=== PATIENT | female | born 1990 | race Caucasian/White ===

== ENCOUNTER 2016-09-20 13:29 | Outpatient (CLI) ==
[2015-02-19 08:50] VITALS: BMI 22.7
== END 2016-09-20 13:30 | disposition home or self-care (01) ==
LOC: AMBL 13:29
PROVIDERS: ATTEND Family Medicine
DX: M25.541 Pain in joints of right hand (principal); S69.91XA Unspecified injury of right wrist, hand and finger(s), initial encounter; W22.8XXA Striking against or struck by other objects, initial encounter

== ENCOUNTER 2017-06-22 14:49 | Outpatient (CLI) ==
[2015-02-19 08:50] VITALS: BMI 22.7
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
== END 2017-06-22 14:50 | disposition home or self-care (01) ==
LOC: RAD 14:49
PROVIDERS: ATTEND Physician Assistant
DX: M54.5 Low back pain (principal)

== ENCOUNTER 2017-06-24 18:57 | Emergency (ER) ==
[2017-06-24 19:08] VITALS: BP 109/74; TEMP 97.5; BMI 23.1
[2017-06-24] MEDS ORDERED: SODIUM CHLORIDE 1,000 ML IV STA ×2 (19:10)
[2017-06-24] MEDS ORDERED: ZOFRAN 4 MG/2 ML IVP STA (19:10)
--- NOTE | 2017-06-24 20:41 | CT ---
EXAM: CT abdomen pelvis without contrast HISTORY: Vomiting, right lower quadrant abdominal pain COMPARISON: 01/12/2014 TECHNIQUE: CT abdomen pelvis performed without intravenous contrast. Coronal and sagittal reformatt ed images obtained. FINDINGS: Lung bases clear. No free air. No acute abnormalities of the bones. Heart normal in siz e. Evaluation organ parenchyma limited without contrast. Liver unremarkable. Gallbladder unremarka ble. Pancreas unremarkable. Spleen unremarkable. Adrenals unremarkable. 2 mm nonobstructing calcu del right kidney. No hydronephrosis. No definite calculi visualized in normal course of the ureters , noting the distal ureters are not visualized. Phleboliths in the pelvis. Bladder decompressed an d poorly evaluated, grossly unremarkable. Phleboliths noted in the pelvis. No. Aorta normal calib er. No lymphadenopathy or ascites. Stomach appears normal. No dilated loops small bowel. Appendix appears normal. Fluid in the colon. No inflammatory stranding identified in the abdomen or pelvis. IMPRESSION: 1. No acute inflammatory process identified in the abdomen or pelvis. 2. Right nephrolithiasis. No hydronephrosis. 3. Nonspecific fluid in the colon can be correlated for diarrhea.
--- NOTE | 2017-06-24 21:50 | ED.PDOC ---
General ED Provider: Dr. ZULEIKA MACHADO-ER Chief Complaint: Nausea/Vomiting Stated Complaint: shannon had vomiting and diarrhea Time Seen by Physician: 19:00 Mode of Arrival: Walk-In Information Source: Patient Exam Limitations: No limitations Primary Care Provider: LAURE SANCHEZ Nursing and Triage Documentation Reviewed and Agree: Yes Reviewed sepsis parameters & appropriate labs ordered?: Yes System Inflammatory Response Syndrome: Not Applicable Sepsis Protocol: For patient's 13 years and over: Temp is 96.8 and below OR 101 and greater Pulse >90 BPM Resp >20/minute Acutely Altered Mental Status Are patient's symptoms suggestive of a new infection, such as: -Pneumonia -Skin, Soft Tissue -Endocarditis -UTI -Bone, Joint Infection -Implantable Device -Acute Abdominal Infection -Wound Infection -Meningitis -Blood Stream Catheter Infection -Unknown GI Complaint Exam - Vomiting/Diarrhea Complaint/Exam Onset/Duration: 24 hrs Symptoms Are: Still present Initial Severity: Mild Current Severity: Mild Character of Vomiting: Reports: Non-bilious Character of Diarrhea: Reports: Watery Aggravating: Reports: None Alleviating: Reports: None Associated Signs and Symptoms: Denies: Dizziness, Light-headedness, Melena, Hematemesis, Fever, Abdominal pain, Cramping Surgical Obstruction Risk Factors: Reports: None Abdominal Findings: Present: None Kussmaul Respirations Present: No Differential Diagnoses: Dehydration, UTI Review of Systems - Review Of Systems Constitutional: Reports: No symptoms Eyes: Reports: No symptoms Ears, Nose, Mouth, Throat: Reports: No symptoms Respiratory: Reports: No symptoms Cardiac: Reports: No symptoms GI: Reports: Diarrhea, Nausea, Vomiting : Reports: No symptoms Musculoskeletal: Reports: No symptoms Skin: Reports: No symptoms Neurological: Reports: No symptoms Endocrine: Reports: No symptoms Hematologic/Lymphatic: Reports: No symptoms All Other Systems: Reviewed and Negative Past Medical History - Past Medical History Previously Healthy: Yes Endocrine: Reports: None Cardiovascular: Reports: None Respiratory: Reports: None Hematological: Reports: None Gastrointestinal: Reports: None Genitourinary: Reports: None Neuro/Psych: Reports: None Musculoskeletal: Reports: None Cancer: Reports: None Last Menstrual Period: 06/08/17 - Surgical History General Surgical History: Reports: Unknown - Family History Family History: Reports: Unknown - Social History Smoking Status: Current every day smoker Hx Substance Use: No Alcohol Screening: None - Immunizations Tetanus Shot up to Date: Yes Physical Exam - Physical Exam Appearance: Well-appearing, No pain distress, Well-nourished Eyes: KORY, EOMI, Conjunctiva clear ENT: Ears normal, Nose normal, Oropharynx normal Neck: Supple Respiratory: Airway patent Cardiovascular: RRR, Pulses normal, No rub, No murmur GI/: Soft, Nontender, No masses, Bowel sounds normal, No Organomegaly Musculoskeletal: Normal strength, ROM intact, No edema, No calf tenderness Skin: Warm, Dry, Normal color Neurological: Sensation intact Psychiatric: Affect appropriate, Mood appropriate Interpretation - Radiology Interpretation Radiology Interpretation By: Radiologist Radiology Results: Negative Exam Interpreted: CT Scan Critical Care Note - Critical Care Note Total Time (mins): 0 Course - Course Hematology/Chemistry: 06/24/17 19:17 06/24/17 19:17 Orders, Labs, Meds: Lab Review 06/24/17 06/24/17 06/24/17 19:10 19:17 19:17 WBC 5.27 RBC 5.07 Hgb 14.0 Hct 42.2 MCV 83.2 MCH 27.6 MCHC 33.2 RDW Coeff of Gilberto 14.2 Plt Count 158 Immature Gran % (Auto) 0.4 Neut % (Auto) 59.9 Lymph % (Auto) 29.8 [place] % (Auto) 9.3 Eos % (Auto) 0.4 Baso % (Auto) 0.2 Immature Gran # (Auto) 0.0 Neut # (Auto) 3.2 Lymph # (Auto) 1.6 [place] # (Auto) 0.5 Eos # (Auto) 0.0 Baso # (Auto) 0.0 Sodium 140 Potassium 3.9 Chloride 106 Carbon Dioxide 23 Anion Gap 14.9 BUN 13 Creatinine 0.92 Estimated GFR (MDRD) 74.00 BUN/Creatinine Ratio 14.13 Glucose 93 Calcium 8.9 Total Bilirubin 0.4 AST 18 ALT 16 Alkaline Phosphatase 68 Total Protein 6.9 Albumin 3.5 Globulin 3.4 Albumin/Globulin Ratio 1.03 Amylase 33 Lipase 26 Serum , Qual Urine Color Urine Clarity Urine pH Ur Specific [place] Urine Protein Urine Glucose (UA) Urine Ketones Urine Blood Urine Nitrite Urine Bilirubin Urine Urobilinogen Ur Leukocyte Esterase Urine Microscopic RBC Urine Microscopic WBC Ur Squamous Epith Cells Urine Bacteria Hyaline Casts Urine Mucus Influ A Molecular Assay Negative by naat Influ B Molecular Assay Negative by naat 06/24/17 06/24/17 19:17 21:00 WBC RBC Hgb Hct MCV MCH MCHC RDW Coeff of Gilberto Plt Count Immature Gran % (Auto) Neut % (Auto) Lymph % (Auto) [place] % (Auto) Eos % (Auto) Baso % (Auto) Immature Gran # (Auto) Neut # (Auto) Lymph # (Auto) [place] # (Auto) Eos # (Auto) Baso # (Auto) Sodium Potassium Chloride Carbon Dioxide Anion Gap BUN Creatinine Estimated GFR (MDRD) BUN/Creatinine Ratio Glucose Calcium Total Bilirubin AST ALT Alkaline Phosphatase Total Protein Albumin Globulin Albumin/Globulin Ratio Amylase Lipase Serum , Qual Negative Urine Color Yellow Urine Clarity Clear Urine pH 5.5 Ur Specific [place] >=1.030 Urine Protein 1+ Urine Glucose (UA) Negative Urine Ketones 1+ Urine Blood 1+ Urine Nitrite Positive Urine Bilirubin 1+ Urine Urobilinogen 0.2 Ur Leukocyte Esterase Negative Urine Microscopic RBC 5-10 Urine Microscopic WBC 2-5 Ur Squamous Epith Cells 5-10 Urine Bacteria 2+ Hyaline Casts 0-2 Urine Mucus 1+ Influ A Molecular Assay Influ B Molecular Assay Orders Category Date Time Status ED IV/MEDIPORT/POWERPORT .ONCE EMERGENCY 06/24/17 19:10 Active AMYLASE Stat LAB 06/24/17 19:17 Completed CBC W/ AUTO DIFF Stat LAB 06/24/17 19:17 Completed COMPREHENSIVE METABOLIC PANEL Stat LAB 06/24/17 19:17 Completed FLU A & B MOLECULAR [FLU A/B MOLECULAR] Stat LAB 06/24/17 19:10 Completed LIPASE Stat LAB 06/24/17 19:17 Completed MOLECULAR GROUP A STREP Stat LAB 06/24/17 19:10 Completed SERUM Stat LAB 06/24/17 19:17 Completed URINALYSIS C & S IF INDICATED Stat LAB 06/24/17 21:00 Completed URINE CULTURE Stat LAB 06/24/17 21:00 Received 0.9 % Sodium Chloride [Saline Flush] MEDS 06/24/17 19:10 Ordered 1 syr IVF PRN PRN Ondansetron HCl/Pf [Zofran 4 mg/2 ml] MEDS 06/24/17 19:10 Discontinued 4 mg IVP ONCE STA Sodium Chloride 0.9% [Sodium Chloride] 1,000 ml MEDS 06/24/17 19:10 Discontinued IV BOLUS Sodium Chloride 0.9% [Sodium Chloride] 1,000 ml MEDS 06/24/17 19:[address] ABDOMEN/PELVIS WO CONTRAST Stat RADS 06/24/17 19:11 Completed Medications Generic Name Dose Route Start Last Admin Trade Name Freq PRN Reason Stop Dose Admin Sodium Chloride 1 syr 06/24/17 19:10 06/24/17 19:21 Saline Flush IVF 1 syr PRN PRN Administration To flush IV Discontinued Medications Generic Name Dose Route Start Last Admin Trade Name Freq PRN Reason Stop Dose Admin Sodium Chloride 1,000 mls @ 1,000 mls/hr 06/24/17 19:10 06/24/17 19:21 Sodium Chloride IV 06/24/17 20:09 1,000 mls/hr BOLUS STA Administration Sodium Chloride 1,000 mls @ 1,000 mls/hr 06/24/17 19:10 06/24/17 20:57 Sodium Chloride IV 06/24/17 20:09 1,000 mls/hr BOLUS STA Administration Ondansetron HCl 4 mg 06/24/17 19:10 06/24/17 19:23 Zofran 4 Mg/2 Ml IVP 06/24/17 19:11 4 mg ONCE STA Administration Vital Signs: Temp Pulse Resp BP Pulse Ox 06/24/17 18:59 97.5 F L 86 20 109/74 98 Departure - Departure Time of Disposition: 21:49 Disposition: HOME SELF-CARE Discharge Problem: Enteritis UTI (urinary tract infection) Qualifiers: Urinary tract infection type: site unspecified Hematuria presence: without hematuria Qualified Code(s): N39.0 - Urinary tract infection, site not specified Instructions: Urinary Tract Infection in Women (DC) Condition: Good Pt referred to PMD for follow-up: Yes IPMP verified?: No Additional Instructions: cipro 500mg bid x 7dyas==zofran 4mg q 4hrs prn nausea #4--clear liquids and advance-- Allergies/Adverse Reactions: Allergies No Known Allergies Allergy (Verified 02/19/15 08:48) Home Medications: Ambulatory Orders 1 [No Reported Medications] 06/24/17 Disposition Discussed With: Patient, Family
== END 2017-06-24 21:58 | disposition home or self-care (01) ==
LOC: ED 18:57
DX: K52.9 Noninfective gastroenteritis and colitis, unspecified (principal); N39.0 Urinary tract infection, site not specified; F17.210 Nicotine dependence, cigarettes, uncomplicated
CPT/HCPCS: 36415; 80053; 81001; 82150; 83690; 84703; 85025; 87086; 87186; 87502; 87651; 96361; 96374; 99283

== ENCOUNTER 2017-08-26 13:20 | Emergency (ER) ==
[2017-08-26 13:31] VITALS: BP 126/81; TEMP 99.9; BMI 22.6
[2017-08-26] MEDS ORDERED: TORADOL IM STA (13:42)
[2017-08-26] MEDS ORDERED: LIDOCAINE HCL 1% SDV IM STA (14:54)
[2017-08-26] MEDS ORDERED: ROCEPHIN IM STA (14:54)
--- NOTE | 2017-08-26 15:06 | CT ---
EXAM: CT of the abdomen pelvis without contrast History: Abdominal pain. Right flank pain Comparison: CT abdomen pelvis 06/24/2017 Technique: Multiplanar CT images through the abdomen pelvis were obtained without the administration of IV contrast Findings: The lung bases are clear. No acute osseous abnormalities. No discrete gallstones identified by CT. No focal liver or splenic lesions. No peripancreatic infla mmation. 2 mm calculus within the right kidney. No hydronephrosis. No perinephric stranding. No b owel obstruction. No free air and no ascites. Adrenal glands are unremarkable. Evaluation for lymp h nodes is difficult due to the lack of contrast administration but no pathologically enlarged lymph nodes are seen. No bladder wall thickening. No perirectal inflammation. No inflammatory stranding. Multiple small pelvic calcifications are probably phleboliths since there is no hydronephrosis. The appendix is not seen. There are no secondary signs of appendicitis. Adnexal structures not well jean carlos luated without IV contrast. Impression: 1. No acute intra-abdominal or pelvic process. 2. Nonobstructing right nephrolithiasis.
--- NOTE | 2017-08-26 15:54 | ED.PDOC ---
General ED Provider: Dr. RIYA AMOS Chief Complaint: Abdominal Pain Stated Complaint: lower abdominal Time Seen by Physician: 13:30 Mode of Arrival: Walk-In Information Source: Patient Exam Limitations: No limitations Primary Care Provider: LAURE SANCHEZ Nursing and Triage Documentation Reviewed and Agree: Yes Reviewed sepsis parameters & appropriate labs ordered?: Yes System Inflammatory Response Syndrome: Not Applicable Sepsis Protocol: For patient's 13 years and over: Temp is 96.8 and below OR 101 and greater Pulse >90 BPM Resp >20/minute Acutely Altered Mental Status Are patient's symptoms suggestive of a new infection, such as: -Pneumonia -Skin, Soft Tissue -Endocarditis -UTI -Bone, Joint Infection -Implantable Device -Acute Abdominal Infection -Wound Infection -Meningitis -Blood Stream Catheter Infection -Unknown System Inflammatory Response Syndrome: Not Applicable GI Complaint Exam - Abdominal Pain Complaint/Exam Onset: Gradual Duration: 2 days right left lower quadrent Symptoms Are: Still present Timing: Intermittent Initial Severity: Moderate Current Severity: Moderate Location of Pain: RLQ, LLQ Radiates To: Reports: Chest Character: Reports: Dull Aggravating: Reports: None Alleviating: Reports: None Associated Signs and Symptoms: Denies: Diaphoresis, Fever, Cough, Chest pain, Dizziness, Back pain, Constipation, Blood in stool, Dysuria, Urinary frequency, Decreased urine output, Decreased appetite, Vaginal bleeding, Vaginal discharge , Nausea, Vomiting, Diarrhea, Sore throat, Decreased activity Related History: Reports: Similar episode (renal stone seen at [facility] ) AAA Risk Factors: Reports: None Cardiac Risk Factors: Reports: None Ectopic Risk Factors: Reports: None Ovarian Torsion Risk Factors: Reports: None Surgical Obstruction Risk Factors: Reports: None Related Surgical History: Reports: None Patient Rh Status: Unknown Abdominal Findings: Present: None Differential Diagnoses: Appendicitis, Bowel Obstruction, Constipation, Hepatitis , Pancreatitis, UTI Review of Systems - Review Of Systems Constitutional: Reports: No symptoms Eyes: Reports: No symptoms Ears, Nose, Mouth, Throat: Reports: No symptoms Respiratory: Reports: No symptoms Cardiac: Reports: No symptoms GI: Reports: Abdominal pain : Reports: Dysuria Musculoskeletal: Reports: No symptoms Skin: Reports: No symptoms Neurological: Reports: No symptoms Endocrine: Reports: No symptoms Hematologic/Lymphatic: Reports: No symptoms All Other Systems: Reviewed and Negative Past Medical History - Past Medical History Previously Healthy: Yes Endocrine: Reports: None Cardiovascular: Reports: None Respiratory: Reports: None Hematological: Reports: None Gastrointestinal: Reports: None Genitourinary: Reports: None Neuro/Psych: Reports: None Musculoskeletal: Reports: None Cancer: Reports: None Last Menstrual Period: now - Surgical History General Surgical History: Reports: Unknown - Family History Family History: Reports: Unknown - Social History Smoking Status: Current every day smoker, Light tobacco smoker Hx Substance Use: No Alcohol Screening: None Physical Exam - Physical Exam Appearance: Well-appearing, No pain distress, Well-nourished Eyes: KORY, EOMI, Conjunctiva clear ENT: Ears normal, Nose normal, Oropharynx normal Respiratory: Airway patent, Breath sounds clear, Breath sounds equal, Respirations nonlabored Cardiovascular: RRR, Pulses normal, No rub, No murmur GI/: Soft, Nontender, No masses, Bowel sounds normal, No Organomegaly Musculoskeletal: Normal strength, ROM intact, No edema, No calf tenderness Skin: Warm, Dry, Normal color Neurological: Sensation intact, Motor intact, Reflexes intact, Cranial nerves intact, Alert, Oriented Psychiatric: Affect appropriate, Mood appropriate Interpretation - Radiology Interpretation Radiology Interpretation By: Radiologist Radiology Results: Positive (renal stone) Critical Care Note - Critical Care Note Total Time (mins): 0 Course - Course Hematology/Chemistry: 08/26/17 13:50 08/26/17 13:50 Orders, Labs, Meds: Lab Review 08/26/17 08/26/17 08/26/17 13:50 13:50 14:05 WBC 14.90 H RBC 4.19 L Hgb 11.3 L Hct 34.3 L MCV 81.9 MCH 27.0 MCHC 32.9 RDW Coeff of Gilberto 14.5 Plt Count 270 Immature Gran % (Auto) 0.8 Neut % (Auto) 78.6 Lymph % (Auto) 14.7 [place] % (Auto) 5.3 Eos % (Auto) 0.3 Baso % (Auto) 0.3 Immature Gran # (Auto) 0.1 Neut # (Auto) 11.7 H Lymph # (Auto) 2.2 [place] # (Auto) 0.8 Eos # (Auto) 0.1 Baso # (Auto) 0.0 Sodium 138 Potassium 3.7 Chloride 102 Carbon Dioxide 24 Anion Gap 15.7 BUN 11 Creatinine 0.88 Estimated GFR (MDRD) 78.00 BUN/Creatinine Ratio 12.50 Glucose 74 Calcium 8.9 Total Bilirubin 0.4 AST 25 ALT 35 Alkaline Phosphatase 78 Total Protein 7.3 Albumin 3.3 L Globulin 4.0 Albumin/Globulin Ratio 0.83 Amylase 33 Lipase 20 Urine Color Yellow Urine Clarity Slightly Urine pH 6.0 Ur Specific [place] 1.020 Urine Protein 1+ Urine Glucose (UA) Negative Urine Ketones Negative Urine Blood 2+ Urine Nitrite Positive Urine Bilirubin Negative Urine Urobilinogen 0.2 Ur Leukocyte Esterase 2+ Urine Microscopic RBC 20-30 Urine Microscopic WBC 20-30 Ur Squamous Epith Cells Not present Urine Bacteria 1+ Urine Test 08/26/17 14:05 WBC RBC Hgb Hct MCV MCH MCHC RDW Coeff of Gilberto Plt Count Immature Gran % (Auto) Neut % (Auto) Lymph % (Auto) [place] % (Auto) Eos % (Auto) Baso % (Auto) Immature Gran # (Auto) Neut # (Auto) Lymph # (Auto) [place] # (Auto) Eos # (Auto) Baso # (Auto) Sodium Potassium Chloride Carbon Dioxide Anion Gap BUN Creatinine Estimated GFR (MDRD) BUN/Creatinine Ratio Glucose Calcium Total Bilirubin AST ALT Alkaline Phosphatase Total Protein Albumin Globulin Albumin/Globulin Ratio Amylase Lipase Urine Color Urine Clarity Urine pH Ur Specific [place] Urine Protein Urine Glucose (UA) Urine Ketones Urine Blood Urine Nitrite Urine Bilirubin Urine Urobilinogen Ur Leukocyte Esterase Urine Microscopic RBC Urine Microscopic WBC Ur Squamous Epith Cells Urine Bacteria Urine Test Negative Orders Category Date Time Status AMYLASE Stat LAB 08/26/17 13:50 Completed CBC W/ AUTO DIFF Stat LAB 08/26/17 13:50 Completed COMPREHENSIVE METABOLIC PANEL Stat LAB 08/26/17 13:50 Completed LIPASE Stat LAB 08/26/17 13:50 Completed URINALYSIS C & S IF INDICATED Stat LAB 08/26/17 14:05 Completed URINE CULTURE Stat LAB 08/26/17 14:05 Received URINE Stat LAB 08/26/17 14:05 Completed Ceftriaxone Sodium [Rocephin] MEDS 08/26/17 14:54 Stat 1 gm IM ONCE STA Ketorolac Tromethamine [Toradol] MEDS 08/26/17 13:42 Discontinued 30 mg IM ONCE STA Lidocaine HCl/Pf [Lidocaine HCl 1% Sdv] MEDS 08/26/17 14:54 Stat 2.1 ml IM ONCE STA CT ABDOMEN/PELVIS WO CONTRAST Stat RADS 08/26/17 13:39 Taken Medications Discontinued Medications Generic Name Dose Route Start Last Admin Trade Name Jovanni PRN Reason Stop Dose Admin Ceftriaxone Sodium 1 gm 08/26/17 14:54 08/26/17 15:20 Rocephin IM 08/26/17 14:55 1 gm ONCE STA Administration Ketorolac Tromethamine 30 mg 08/26/17 13:42 08/26/17 14:08 Toradol IM 08/26/17 13:43 30 mg ONCE STA Administration Lidocaine HCl 2.1 ml 08/26/17 14:54 08/26/17 15:16 Lidocaine Hcl 1% Sdv IM 08/26/17 14:55 2.1 ml ONCE STA Administration Vital Signs: Temp Pulse Resp BP Pulse Ox 08/26/17 13:21 99.9 F H 109 H 20 126/81 96 Departure - Departure Time of Disposition: 15:55 Disposition: HOME SELF-CARE Discharge Problem: Abdominal pain, UTI (urinary tract infection) Instructions: Urinary Tract Infection in Women (ED), Abdominal Pain (ED) Condition: Good Pt referred to PMD for follow-up: Yes IPMP verified?: No Additional Instructions: Please call your Family Physician as soon as possible to schedule a follow-up appointment. Allergies/Adverse Reactions: Allergies No Known Allergies Allergy (Verified 08/26/17 13:30) Home Medications: Ambulatory Orders Cholecalciferol (Vitamin D3) [Vitamin D] 50,000 unit PO WEEKLY 08/26/17 Trazodone HCl 100 mg PO BEDTIME 08/26/17 Venlafaxine HCl [Effexor Xr] 37.5 mg PO DAILY 08/26/17
== END 2017-08-26 16:07 | disposition home or self-care (01) ==
LOC: ED 13:20
DX: N39.0 Urinary tract infection, site not specified (principal); R10.32 Left lower quadrant pain; R10.31 Right lower quadrant pain; F17.210 Nicotine dependence, cigarettes, uncomplicated; N20.0 Calculus of kidney
CPT/HCPCS: 36415; 80053; 81001; 81025; 82150; 83690; 85025; 87086; 87186; 96372; 99283

== ENCOUNTER 2017-09-12 01:59 | Inpatient (IN) ==
[2017-09-12] MEDS ORDERED: PROTONIX IV IVP STA (02:31)
[2017-09-12] MEDS ORDERED: SODIUM CHLORIDE 1,000 ML IV STA (02:31)
[2017-09-12] MEDS ORDERED: DILAUDID IVP STA (02:31)
[2017-09-12] MEDS ORDERED: ZOFRAN 4 MG/2 ML IVP STA (02:31)
--- NOTE | 2017-09-12 02:36 | ED.PDOC ---
General ED Provider: Dr. DG FELIZ Chief Complaint: Abdominal Pain Stated Complaint: Patient complains of two week history of rigth upper quadrant pain with radiation to the back. Pain got worse tonight. she was seen in this ER on the August for abdominal pain. Had a CT scan that showed. Right 2mm kidney stone without obstruction. She was diagnosed with urinary tract infection and sent home on antibotics which she states she completed. Time Seen by Physician: 02:33 Mode of Arrival: Walk-In Information Source: Patient Exam Limitations: No limitations Primary Care Provider: LAURE SANCHEZ Nursing and Triage Documentation Reviewed and Agree: Yes Reviewed sepsis parameters & appropriate labs ordered?: Yes System Inflammatory Response Syndrome: Temp 101F or Greater, Pulse >90 BPM, Resp >20/Minute Sepsis Protocol: For patient's 13 years and over: Temp is 96.8 and below OR 101 and greater Pulse >90 BPM Resp >20/minute Acutely Altered Mental Status Are patient's symptoms suggestive of a new infection, such as: -Pneumonia -Skin, Soft Tissue -Endocarditis -UTI -Bone, Joint Infection -Implantable Device -Acute Abdominal Infection -Wound Infection -Meningitis -Blood Stream Catheter Infection -Unknown System Inflammatory Response Syndrome: Not Applicable GI Complaint Exam - Abdominal Pain Complaint/Exam Onset: Gradual Duration: 1-2 weeks Symptoms Are: Still present Timing: Constant Initial Severity: Moderate Current Severity: Severe Location of Pain: RUQ Radiates To: Reports: Back Character: Reports: Aching, Throbbing Aggravating: Reports: None Associated Signs and Symptoms: Reports: Fever, Back pain, Nausea. Denies: Cough , Chest pain, Dizziness, Constipation, Blood in stool, Dysuria, Urinary frequency, Vomiting, Diarrhea, Sore throat Related History: Reports: Similar episode (3 weeks ago but symtoms were mild. ) [employer] History: Denies: Ectopic, Ovarian cyst, PID : 0 Para: 0 Hx Total # of Abortions (Spontaneous & Elective): 0 AAA Risk Factors: Reports: None Cardiac Risk Factors: Reports: None Ectopic Risk Factors: Reports: None Ovarian Torsion Risk Factors: Reports: Reproductive age Surgical Obstruction Risk Factors: Reports: None Related Surgical History: Reports: Appendectomy Patient Rh Status: Unknown Abdominal Findings: Absent: Pulsatile mass, Abdominal distention, Unequal femoral pulses, Rebound tenderness, Peritoneal signs, McBurney's Point tender Differential Diagnoses: Appendicitis, Gastroenteritis, Hepatitis, Pancreatitis, Pneumonia, Renal Colic, Ureteral Stone, GB, PUD, UTI, , Ovarian Cyst Review of Systems - Review Of Systems Constitutional: Reports: Diaphoresis, Loss of appetite Ears, Nose, Mouth, Throat: Reports: No symptoms Respiratory: Reports: No symptoms Cardiac: Denies: Chest pain, Edema GI: Reports: Abdominal pain, Nausea, Poor appetite, Vomiting : Reports: No symptoms Musculoskeletal: Reports: Back pain Skin: Reports: No symptoms Neurological: Reports: Anxiety Endocrine: Reports: No symptoms Hematologic/Lymphatic: Reports: No symptoms All Other Systems: Reviewed and Negative Past Medical History - Past Medical History Previously Healthy: Yes Endocrine: Reports: None Cardiovascular: Reports: None Respiratory: Reports: None Hematological: Reports: None Gastrointestinal: Reports: None Genitourinary: Reports: UTI (Treated 3 weeks ago with Bactrium, Treated 3 months ago with Cipro. Urine cultures showed E coli resistant to bactrium on aug 26 2017 ), Kidney stones Neuro/Psych: Reports: Anxiety, Depression Musculoskeletal: Reports: None Cancer: Reports: None Last Menstrual Period: A FEW WEEKS AGO - Surgical History General Surgical History: Reports: Other (PE tubes as a child. ) - Family History Family History: Reports: Unknown - Social History Smoking Status: Current every day smoker, Heavy tobacco smoker Hx Substance Use: No Alcohol Screening: Occasionally - Immunizations Tetanus Shot up to Date: Yes Physical Exam - Physical Exam Appearance: Ill-appearing Ill-appearing: Moderate Pain Distress: Severe Eyes: KORY, EOMI Neck: Supple Respiratory: Airway patent, Breath sounds clear, Breath sounds equal Cardiovascular: Pulses normal, Tachycardia GI/: Soft, Tender (RUQ) Musculoskeletal: Normal strength, ROM intact, No edema, No calf tenderness Skin: Warm, Dry Neurological: Sensation intact, Motor intact, Alert, Oriented Psychiatric: Anxious Interpretation - Radiology Interpretation Radiology Interpretation By: Radiologist Radiology Results: Positive (stranding /edema is present inferor tot he Right kidney which extendeds to the right Pericolic gutter. Pyelonephritis cannot be excluded due to lack of contrust; Nonobstructing kidney stone.) Critical Care Note - Critical Care Note Total Time (mins): 30 Course - Course Hematology/Chemistry: 09/13/17 04:50 09/13/17 04:50 Orders, Labs, Meds: Lab Review 09/12/17 09/12/17 09/12/17 02:45 02:45 02:45 WBC 9.63 RBC 3.67 L Hgb 9.8 L Hct 29.8 L MCV 81.2 MCH 26.7 L MCHC 32.9 RDW Coeff of Gilberto 15.6 H Plt Count 174 Immature Gran % (Auto) 0.4 Neut % (Auto) 81.4 Lymph % (Auto) 11.6 [place] % (Auto) 6.3 Eos % (Auto) 0.1 Baso % (Auto) 0.2 Immature Gran # (Auto) 0.0 Neut # (Auto) 7.8 H Lymph # (Auto) 1.1 [place] # (Auto) 0.6 Eos # (Auto) 0.0 Baso # (Auto) 0.0 Sodium 134 L Potassium 3.1 L Chloride 105 Carbon Dioxide 17 L Anion Gap 15.1 BUN 9 Creatinine 0.84 Estimated GFR (MDRD) 83.00 BUN/Creatinine Ratio 10.71 Glucose 168 H Lactic Acid 29.0 H Calcium 8.0 L Total Bilirubin 0.3 AST 25 ALT 26 Alkaline Phosphatase 81 Total Protein 5.5 L Albumin 2.4 L Globulin 3.1 Albumin/Globulin Ratio 0.77 Amylase 18 L Lipase 16 Procalcitonin Serum , Qual Urine Color Urine Clarity Urine pH Ur Specific [place] Urine Protein Urine Glucose (UA) Urine Ketones Urine Blood Urine Nitrite Urine Bilirubin Urine Urobilinogen Ur Leukocyte Esterase Urine Microscopic RBC Urine Microscopic WBC Ur Squamous Epith Cells Urine Bacteria 09/12/17 09/12/17 09/12/17 02:45 02:45 03:10 WBC RBC Hgb Hct MCV MCH MCHC RDW Coeff of Gilberto Plt Count Immature Gran % (Auto) Neut % (Auto) Lymph % (Auto) [place] % (Auto) Eos % (Auto) Baso % (Auto) Immature Gran # (Auto) Neut # (Auto) Lymph # (Auto) [place] # (Auto) Eos # (Auto) Baso # (Auto) Sodium Potassium Chloride Carbon Dioxide Anion Gap BUN Creatinine Estimated GFR (MDRD) BUN/Creatinine Ratio Glucose Lactic Acid Calcium Total Bilirubin AST ALT Alkaline Phosphatase Total Protein Albumin Globulin Albumin/Globulin Ratio Amylase Lipase Procalcitonin 0.25 Serum , Qual Negative Urine Color Yellow Urine Clarity Slightly Urine pH 6.5 Ur Specific [place] 1.020 Urine Protein 2+ Urine Glucose (UA) Negative Urine Ketones Negative Urine Blood 2+ Urine Nitrite Positive Urine Bilirubin Negative Urine Urobilinogen 1.0 Ur Leukocyte Esterase 1+ Urine Microscopic RBC 10-20 Urine Microscopic WBC 10-20 Ur Squamous Epith Cells 5-10 Urine Bacteria 4+ Orders Category Date Time Status ADMIT PATIENT INPATIENT .TO [facility] (NON-MONITORED ADMISSION 09/12/17 03: 57 Active BED) ACTIVITY .Up ad Hayde CARE 09/12/17 03:38 Active INTAKE & OUTPUT Q8HR CARE 09/12/17 03:38 Active VITAL SIGNS Q4HR CARE 09/12/17 03:38 Active REGULAR DIET DIETARY 09/12/17 Breakfast Ordered ED IV/MEDIPORT/POWERPORT .ONCE EMERGENCY 09/12/17 02:31 Active AMYLASE Stat LAB 09/12/17 02:45 Completed BASIC METABOLIC PANEL DAILY@0600 LAB 09/13/17 04:50 Completed BLOOD CULTURE (ED ONLY) Stat LAB 09/12/17 02:45 Results CBC W/ AUTO DIFF DAILY@0600 LAB 09/13/17 04:50 Completed CBC W/ AUTO DIFF Stat LAB 09/12/17 02:45 Completed COMPREHENSIVE METABOLIC PANEL Stat LAB 09/12/17 02:45 Completed HCG QUALITATIVE [SERUM ] Stat LAB 09/12/17 02:45 Completed LACTIC ACID Stat LAB 09/12/17 02:45 Completed LIPASE Stat LAB 09/12/17 02:45 Completed POS BC ID AND SERGIO Stat LAB 09/12/17 02:45 Results PROCALCITONIN Stat LAB 09/12/17 02:45 Completed URINALYSIS C & S IF INDICATED Stat LAB 09/12/17 03:10 Completed URINE CULTURE Stat LAB 09/12/17 03:10 Results 0.9 % Sodium Chloride [Saline Flush] MEDS 09/12/17 02:31 Active 1 syr IVF PRN PRN Acetaminophen [Tylenol] MEDS 09/12/17 03:02 Discontinued 1,000 mg PO ONCE STA Acetaminophen [Tylenol] MEDS 09/12/17 03:38 Active 650 mg PO Q4H PRN Enoxaparin Sodium [Lovenox] MEDS 09/12/17 09:00 Active 40 mg SUBCUT DAILY Hydromorphone HCl [Dilaudid] MEDS 09/12/17 02:31 Discontinued 0.5 mg IVP ONCE STA Ketorolac Tromethamine [Toradol] MEDS 09/12/17 03:07 Discontinued 30 mg IVP ONCE STA Levofloxacin/D5w [Levaquin] 100 ml MEDS 09/12/17 03:07 Discontinued IV .STK-MED Levofloxacin/D5w [Levaquin] 500 mg MEDS 09/13/17 09:00 Active Premix 100 ml D5w 1 bag IV DAILY Levofloxacin/D5w [Levaquin] 500 mg MEDS 09/12/17 03:00 Discontinued Premix 100 ml D5w 1 bag IV ONCE Ondansetron HCl/Pf [Zofran 4 mg/2 ml] MEDS 09/12/17 02:31 Discontinued 4 mg IVP ONCE STA Ondansetron HCl/Pf [Zofran 4 mg/2 ml] MEDS 09/12/17 03:38 Active 4 mg IVP Q6H PRN Pantoprazole Sodium [Protonix IV] MEDS 09/12/17 02:31 Discontinued 40 mg IVP ONCE STA Sodium Chloride 0.9% [Sodium Chloride] 1,000 ml MEDS 09/12/17 04:00 Discontinued IV 150 mls/hr Sodium Chloride 0.9% [Sodium Chloride] 1,000 ml MEDS 09/12/17 02:31 Discontinued IV BOLUS RESUSCITATION STATUS Routine OTHERS 09/12/17 03:[address] ABD/PEL WO RENAL STONE PROT Stat RADS 09/12/17 02:31 Completed Medications Generic Name Dose Route Start Last Admin Trade Name Freq PRN Reason Stop Dose Admin Acetaminophen 650 mg 09/12/17 03:38 09/12/17 21:46 Tylenol PO 650 mg Q4H PRN Administration Fever Enoxaparin Sodium 40 mg 09/12/17 09:00 09/13/17 09:39 Lovenox SUBCUT 40 mg DAILY GEORGE Administration Levofloxacin/Dextrose 500 mg/ 100 mls @ 100 mls/hr 09/13/17 09:00 09/13/17 11 :23 Dextrose IV 100 mls/hr DAILY GEORGE Administration Sodium Chloride 1,000 mls @ 70 mls/hr 09/12/17 06:30 09/13/17 03:49 Sodium Chloride IV 70 mls/hr .[id number] GEORGE Administration Cefepime HCl 1 gm/ Sodium 50 mls @ 50 mls/hr 09/12/17 21:00 09/13/17 10:07 Chloride IV 50 mls/hr Q12HR GEORGE Administration Ketorolac Tromethamine 30 mg 09/13/17 13:00 09/13/17 12:53 Toradol IVP 30 mg Q8HR GEORGE Administration Morphine Sulfate 2 mg 09/12/17 09:58 09/13/17 10:34 Morphine 4 Mg/Ml Vial IVP 2 mg Q4HR PRN Administration Moderate to severe pain Ondansetron HCl 4 mg 09/12/17 03:38 Zofran 4 Mg/2 Ml IVP Q6H PRN Nausea / Vomiting Potassium Chloride 20 meq 09/12/17 08:00 09/13/17 09:38 K-Dur PO 20 meq DAILYWM GEORGE Administration Sodium Chloride 1 syr 09/12/17 02:31 09/12/17 11:37 Saline Flush IVF 1 syr PRN PRN Administration To flush IV Discontinued Medications Generic Name Dose Route Start Last Admin Trade Name Freq PRN Reason Stop Dose Admin Acetaminophen 1,000 mg 09/12/17 03:02 09/12/17 03:25 Tylenol PO 09/12/17 03:03 1,000 mg ONCE STA Administration Hydromorphone HCl 0.5 mg 09/12/17 02:31 09/12/17 02:45 Dilaudid IVP 09/12/17 02:32 0.5 mg ONCE STA Administration Sodium Chloride 1,000 mls @ 1,000 mls/hr 09/12/17 02:31 09/12/17 02:42 Sodium Chloride IV 09/12/17 03:30 1,000 mls/hr BOLUS STA Administration Levofloxacin/Dextrose 500 mg/ 100 mls @ 100 mls/hr 09/12/17 03:00 09/12/17 03 :25 Dextrose IV 09/12/17 03:59 100 mls/hr ONCE STA Administration Sodium Chloride 1,000 mls @ 150 mls/hr 09/12/17 04:00 09/12/17 04:51 Sodium Chloride IV 150 mls/hr .[id number] GEORGE Administration Sodium Chloride 1,000 mls @ 150 mls/hr 09/12/17 06:02 09/12/17 06:02 Sodium Chloride IV 09/12/17 10:39 150 mls/hr .Q6H40M GEORGE Administration Ketorolac Tromethamine 30 mg 09/12/17 03:07 09/12/17 03:21 Toradol IVP 09/12/17 03:08 30 mg ONCE STA Administration Meperidine HCl 25 mg 09/12/17 05:56 09/13/17 03:55 Demerol 50 Mg/Ml Vial IVP 25 mg Q8H PRN Administration Abdominal Pain Ondansetron HCl 4 mg 09/12/17 02:31 09/12/17 02:44 Zofran 4 Mg/2 Ml IVP 09/12/17 02:32 4 mg ONCE STA Administration Pantoprazole Sodium 40 mg 09/12/17 02:31 09/12/17 03:21 Protonix Iv IVP 09/12/17 02:32 40 mg ONCE STA Administration Potassium Chloride 20 meq 09/12/17 04:09 09/12/17 04:19 K-Dur PO 09/12/17 04:10 20 meq ONCE STA Administration Vital Signs: Temp Pulse Resp BP Pulse Ox 09/12/17 02:00 103.6 F H 124 H 32 H 124/77 98 Departure - Departure Time of Disposition: 03:57 Disposition: ADMITTED INPATIENT Discharge Problem: Pyelonephritis, Hypokalemia Urinary tract infection Qualifiers: Urinary tract infection type: acute pyelonephritis Qualified Code(s): N10 - Acute pyelonephritis Condition: Fair Pt referred to PMD for follow-up: Yes IPMP verified?: No Allergies/Adverse Reactions: Allergies No Known Allergies Allergy (Verified 09/12/17 02:08) Home Medications: Ambulatory Orders 1 [No Reported Medications] 09/12/17 Transfer Form Completed: No Disposition Discussed With: Patient, Family
[2017-09-12] MEDS ORDERED: LEVAQUIN 500 MG in PREMIX 100 ML D5W 1 BAG IV STA (03:00)
[2017-09-12] MEDS ORDERED: TYLENOL PO STA (03:02)
[2017-09-12] MEDS ORDERED: TORADOL IVP STA (03:07)
[2017-09-12] MEDS ORDERED: LEVAQUIN 100 ML IV ONE (03:07)
[2017-09-12] MEDS ORDERED: ZOFRAN 4 MG/2 ML IVP PRN (03:38)
[2017-09-12] MEDS ORDERED: MORPHINE 2 MG/ML SYRINGE IVP PRN (03:38)
--- NOTE | 2017-09-12 03:54 | CT ---
EXAM: CT abdomen pelvis without intravenous contrast 09/12/2017. Sagittal and coronal reformatted i mages obtained HISTORY: Right upper quadrant pain COMPARISON: 08/26/2017 FINDINGS: The liver and gallbladder show no acute abnormality. The adrenal glands and left kidney show no acute process. Nonobstructive right-sided nephrolithiasis measures up to 3 mm. No definitive hydronephrosis. Stranding is present at the inferior margin of the right kidney which extends into the right pericolic gutter. This is of uncertain etiology. The spleen and pancreas show no acute abnormality. The pancreas is not well visualized. No bowel ob struction. Appendix not well visualized. Upper normal thickness of the urinary bladder wall. Corre late clinically for cystitis. There is perivesicular stranding. Small quantity of free fluid within the pelvis. IMPRESSION: 1. No urinary obstruction. Nonobstructive right-sided nephrolithiasis. 2. Limited anatomic detail due to the lack of intravenous contrast in combination with a paucity of intra-abdominal fat. 3. Stranding / edema is present inferior to the right kidney which extends into the right pericolic gutter. This is of uncertain etiology. 4. Wall thickening of the urinary bladder with perivesicular stranding. Correlate for cystitis. Py elonephritis cannot be excluded due to the lack of contrast. 5. The appendix is not well visualized. 6. Small quantity of free fluid within the pelvis.
[2017-09-12] MEDS ORDERED: SODIUM CHLORIDE 1,000 ML IV SCH ×2 (04:00→06:02)
[2017-09-12] MEDS ORDERED: K-DUR PO STA (04:09)
[2017-09-12 05:16] VITALS: BMI 24.0
[2017-09-12] MEDS: DEMEROL 50 MG/ML VIAL IVP PRN ×2 (06:23→18:33)
[2017-09-12] MEDS: LOVENOX SUBCUT SCH (08:11)
[2017-09-12] MEDS: K-DUR PO SCH (08:11)
[2017-09-12] MEDS ORDERED: MORPHINE 4 MG/ML VIAL ONE (09:57)
[2017-09-12] MEDS: MORPHINE 4 MG/ML VIAL IVP PRN ×3 (10:00→21:45)
[2017-09-12] MEDS: SODIUM CHLORIDE 1,000 ML IV SCH (12:21)
[2017-09-12] MEDS: MAXIPIME 1 GM in SODIUM CHLORIDE 50 ML IV SCH (20:37)
[2017-09-12] MEDS: TYLENOL PO PRN (21:46)
[2017-09-13] MEDS: SODIUM CHLORIDE 1,000 ML IV SCH ×2 (03:49→20:36)
[2017-09-13] MEDS: DEMEROL 50 MG/ML VIAL IVP PRN (03:55)
[2017-09-13] MEDS: MORPHINE 4 MG/ML VIAL IVP PRN ×4 (05:42→22:57)
[2017-09-13] MEDS: K-DUR PO SCH (09:38)
[2017-09-13] MEDS: LOVENOX SUBCUT SCH (09:39)
[2017-09-13] MEDS: MAXIPIME 1 GM in SODIUM CHLORIDE 50 ML IV SCH ×2 (10:07→20:30)
[2017-09-13] MEDS: LEVAQUIN 500 MG in PREMIX 100 ML D5W 1 BAG IV SCH (11:23)
[2017-09-13] MEDS: TORADOL IVP SCH ×2 (12:53→20:30)
--- NOTE | 2017-09-13 13:54 | HP ---
DATE OF SERVICE: 09/12/17 CHIEF COMPLAINT: Abdominal pain HISTORY OF PRESENT ILLNESS: This is a 27 year old female who came to the emergency room with a one week onset of abdominal pain, right upper quadrant and back side and got worse tonight. Had tacos for the dinner, slightly nauseated, dizziness, vomiting and diarrhea. Frequency and burning of urination. Temperature 103.6, crying in the room. The patient was seen by Dr. Ryan in the emergency room. CT abdomen and pelvis done which showed limited anatomic detail, stranding/edema present in the inferior of the right kidney, questionable right pericolic gutter, questionable pyelonephritis, non obstructing right nephrolithiasis, wall thickening of the bladder, Pyelonephritis cannot be excluded. At that time given clinical findings and CAT findings the patient was admitted to the hospital for the IV antibiotics. REVIEW OF SYSTEMS: CONSTITUTIONAL: Fever, Chills. Weakness and tiredness. HEENT: Normal. ENDOCRINE: No weight gain; no weight loss. CVS: No chest pain. No PND, no orthopnea. No shortness of breath. No PND, no orthopnea. RESPIRATORY: No cough, no congestion. No hemoptysis. GI: Nausea, no vomiting. Abdominal pain. No melena. : No hematuria. No polyuria. Burning on urination. MUSCULOSKELETAL: No joint swelling. PSYCHIATRIC: Not anxious. No depression. No suicidal thoughts. No homicidal thoughts. SKIN: Intact, no open lesions. PAST MEDICAL HISTORY: UTI Kidney stones Anxiety Depression PAST SURGICAL HISTORY: Tonsillectomy Tube in the ears PERSONAL HISTORY: Homeless. The patient is a current everyday smoker. Occasional alcohol and no illicit drug use. FAMILY HISTORY: High blood pressure MEDICATIONS: None ALLERGIES: No known drug allergies PHYSICAL EXAMINATION: V/S: Blood pressure 109/69, respiratory rate 24, heart rate 97, temperature 98.5 and pulse ox 98%. HEENT: Atraumatic, normocephalic. No scleral icterus. Pallor positive. Mucosa dry. NECK: Supple. No JVD, no bruit. No lymphadenopathy. No thyromegaly. HEART: S1, S2 normal. Tachycardiac. No murmur. No cyanosis or clubbing. No ascites. LUNGS: Clear to auscultation. No rales or rhonchi. ABDOMEN: Soft, Right upper quadrant pain. Bowel sounds are active. No CVA tenderness. No rigidity or guarding. EXTREMITIES: No pedal edema. No cyanosis or clubbing MUSCULOSKELETAL: Normal joints, no swelling. NEUROLOGIC: The patient is alert and oriented. Anxious. SKIN: Intact; no open lesions. LYMPHATIC: No lymph nodes palpable. LABS: WBC 9.63, hgb 9.8, hct 29.8, plt count 174, sodium 134, potassium 3.1, chloride 105, bicarb 17, BUN 9, creatinine 0.84, glucose 168, lactic acid 29. ASSESSMENT: 1. Acute right sided pyelonephritis 2. Urolithiasis 3. Hypokalemia PLAN: 1. Admit patient to the regular floor 2. CBC and CMP today and daily 3. IV fluids 4. Demerol 5. Levofloxacin TIME SPENT: MORE THAN 70 minutes MTDD
[2017-09-14] MEDS: TORADOL IVP SCH ×3 (04:23→21:04)
[2017-09-14] MEDS: LOVENOX SUBCUT SCH (09:11)
[2017-09-14] MEDS: MORPHINE 4 MG/ML VIAL IVP PRN ×3 (09:11→19:09)
[2017-09-14] MEDS: MAXIPIME 1 GM in SODIUM CHLORIDE 50 ML IV SCH ×2 (09:11→21:03)
[2017-09-14] MEDS: K-DUR PO SCH (09:12)
[2017-09-14] MEDS: LEVAQUIN 500 MG in PREMIX 100 ML D5W 1 BAG IV SCH (10:21)
[2017-09-14] MEDS: SODIUM CHLORIDE 1,000 ML IV SCH (13:19)
--- NOTE | 2017-09-14 13:19 | PN ---
DATE OF SERVICE: 09/13/17 SUBJECTIVE: The patient did have a fever of 101.2 yesterday night. The patient is getting the Cefepime 1 gram daily. Blood cultures been positive with gram negative rods. Still having the abdominal pain, nausea and no fever or chills at this time. REVIEW OF SYSTEMS: CONSTITUTIONAL: No fever, no chills. HEENT: Normal. ENDOCRINE: No weight gain, no weight loss. CVS: No angina symptoms. No CHF symptoms. No palpitations. No atypical chest pain for CAD. No shortness of breath. No PND, no orthopnea. RESPIRATORY: No cough, no hemoptysis. GI: No nausea, no vomiting. No abdominal pain. : No hematuria. No polyuria. MUSCULOSKELETAL: No joint swelling. PSYCHIATRIC: Not anxious. No depression. No suicidal thoughts. No homicidal thoughts. SKIN: Intact. No rash. PHYSICAL EXAMINATION: V/S: Blood pressure 197/66, respiratory rate 20, heart rate 78, temperature 98.1 and saturation 100%. HEENT: Normocephalic, atraumatic. Mucosa dry. Pallor positive. No icterus. NECK: Supple. No JVD, no carotid bruit. No lymphadenopathy. LUNGS: Clear to auscultation. No rales or rhonchi. HEART: S1, S2 normal. No S3. No murmur, gallop or regurgitation. ABDOMEN: Soft, Right sided flank pain. Bowel sounds active. No rigidity. No rebound or guarding. CVA tenderness. EXTREMITIES: No cyanosis, clubbing or pedal edema. MUSCULOSKELETAL: No joint swelling. NEUROLOGIC: Awake, alert, oriented times three. No focal deficit. LYMPHATIC: No lymph nodes palpable. SKIN: Intact. LABS: WBC 8.33, hgb 9.1, hct 27.8, plt count 191, sodium 138, potassium 4.0, chloride 110, bicarb 22, BUN 9, creatinine 0.76 and glucose 109. ASSESSMENT: 1. Right sided acute pyelonephritis 2. Urosepsis with Septicemia and bacteremia, e-coli 3. Anemia, iron deficiency type 4. Homeless PLAN: 1. Continue Cefepime 2. IV fluids 3. Morphine for the pain 4. Toradol for pain 5. Stop the Demerol TIME SPENT: More than 35 minutes MTDD
[2017-09-15] MEDS: TORADOL IVP SCH ×3 (04:30→21:16)
[2017-09-15] MEDS: SODIUM CHLORIDE 1,000 ML IV SCH ×2 (06:58→15:40)
[2017-09-15] MEDS ORDERED: CITRATE OF MAGNESIA PO STA (08:42)
--- NOTE | 2017-09-15 09:06 | PN ---
DATE OF SERVICE: 09/14/17 SUBJECTIVE: The patient was admitted with pyelonephritis and bacteremia and sepsis. The patient did not have any fever today. IV antibiotic Cefepime Q 12 hours and it is sensitive. REVIEW OF SYSTEMS: CONSTITUTIONAL: No fever, no chills. HEENT: Normal. ENDOCRINE: No weight gain, no weight loss. CVS: No angina symptoms. No CHF symptoms. No palpitations. No atypical chest pain for CAD. No shortness of breath. No PND, no orthopnea. RESPIRATORY: No cough, no hemoptysis. GI: No nausea, no vomiting. No abdominal pain. : No hematuria. No polyuria. MUSCULOSKELETAL: No joint swelling. PSYCHIATRIC: Not anxious. No depression. No suicidal thoughts. No homicidal thoughts. SKIN: Intact. No rash. PHYSICAL EXAMINATION: V/S: Blood pressure 96/61, respiratory rate 12, heart rate 68, temperature 98.3. HEENT: Normocephalic, atraumatic. Mucosa dry. Pallor positive. NECK: Supple. No JVD, no carotid bruit. No lymphadenopathy. LUNGS: Clear to auscultation. No rales or rhonchi. HEART: S1, S2 normal. No S3. No murmur, gallop or regurgitation. ABDOMEN: Soft, nontender. Bowel sounds active. No rigidity. No rebound or guarding. Right sided CVA tenderness. EXTREMITIES: No cyanosis, clubbing or pedal edema. MUSCULOSKELETAL: No joint swelling. NEUROLOGIC: Awake, alert, oriented times three. No focal deficit. LYMPHATIC: No lymph nodes palpable. SKIN: Intact. LABS: WBC 8.33, hgb 9.1, hct 27.8, plt count 191, sodium 138, potassium 4.0, chloride 110, bicarb 22, BUN 9, creatinine 0.76, glucose 105. ASSESSMENT: 1. Acute right pyelonephritis organism e-coli 2. Bacteremia 3. Sepsis 4. Anemia 5. Kidney stones PLAN: 1. Demerol 2. Lovenox 3. Cefepime Q 12 hours 4. Morphine for the pain 5. IV fluids 6. Out of bed to chair activity as tolerated. TIME SPENT: More than 35 minutes MTDD
[2017-09-15] MEDS: LEVAQUIN 500 MG in PREMIX 100 ML D5W 1 BAG IV SCH (09:13)
[2017-09-15] MEDS: K-DUR PO SCH (09:14)
[2017-09-15] MEDS: LOVENOX SUBCUT SCH (09:18)
[2017-09-15] MEDS: MORPHINE 4 MG/ML VIAL IVP PRN ×3 (09:34→21:56)
[2017-09-16] MEDS: MORPHINE 4 MG/ML VIAL IVP PRN (02:35)
[2017-09-16] MEDS: TORADOL IVP SCH (06:17)
[2017-09-16] MEDS: LEVAQUIN 500 MG in PREMIX 100 ML D5W 1 BAG IV SCH (10:07)
[2017-09-16] MEDS: K-DUR PO SCH (10:07)
[2017-09-16] MEDS: LOVENOX SUBCUT SCH (10:08)
--- NOTE | 2017-09-16 13:49 | PN ---
DATE OF SERVICE: 09/15/17 SUBJECTIVE: The patient is lying the bed, just woke up and says that she still having some discomfort on the right side. Complains that they don't have any place to go. Bacteremia with the e-coli is present, no more fever. REVIEW OF SYSTEMS: CONSTITUTIONAL: No fever, no chills. HEENT: Normal. ENDOCRINE: No weight gain, no weight loss. CVS: No angina symptoms. No CHF symptoms. No palpitations. No atypical chest pain for CAD. No shortness of breath. No PND, no orthopnea. RESPIRATORY: No cough, no hemoptysis. GI: No nausea, no vomiting. No abdominal pain. : No hematuria. No polyuria. MUSCULOSKELETAL: No joint swelling. PSYCHIATRIC: Not anxious. No depression. No suicidal thoughts. No homicidal thoughts. SKIN: Intact. No rash. PHYSICAL EXAMINATION: V/S: Blood pressure 110/20, respiratory rate 12, heart rate 71, temperature 97.7 with saturation 100%. HEENT: Normocephalic, atraumatic. Mucosa dry. Pallor positive. No icterus. NECK: Supple. No JVD, no carotid bruit. No lymphadenopathy. LUNGS: Clear to auscultation. No rales or rhonchi. HEART: S1, S2 normal. No S3. No murmur, gallop or regurgitation. ABDOMEN: Soft, nontender. Bowel sounds active. No rigidity. No rebound or guarding. Right flank and CVA tenderness present. EXTREMITIES: No cyanosis, clubbing or pedal edema. MUSCULOSKELETAL: No joint swelling. NEUROLOGIC: Awake, alert, oriented times three. No focal deficit. LYMPHATIC: No lymph nodes palpable. SKIN: Intact. LABS: WBC 8.33, hgb 9.1, hct 27.8, plt count 191, sodium 138, potassium 4.0, chloride 110, bicarb 22, BUN 9, creatinine 0.76 and glucose 105. ASSESSMENT: 1. Right sided pyelonephritis 2. Bacteremia with e-coli 3. Anemia, iron deficiency anemia 4. Suicidal ideation PLAN: 1. Continue Levaquin 2. Morphine 3. Toradol 4. Mental health consultation. TIME SPENT: More than 35 minutes MTDD
[2017-09-17] MEDS: LEVAQUIN 500 MG in PREMIX 100 ML D5W 1 BAG IV SCH (09:08)
[2017-09-17] MEDS: K-DUR PO SCH (09:08)
[2017-09-17] MEDS: LOVENOX SUBCUT SCH (09:09)
[2017-09-17] MEDS: TYLENOL PO PRN (09:18)
[2017-09-17 11:09] VITALS: TEMP 98
[2017-09-17 11:17] VITALS: BP 109/74
--- NOTE | 2017-09-22 11:06 | DS ---
DATE OF SERVICE: 09/17/17 FINAL DIAGNOSIS: 1. RIGHT-SIDED ACUTE PYELONEPHRITIS, ORGANISM E. COLI 2. BACTEREMIA, ORGANISM E. COLI SENSITIVE TO AUGMENTIN 3. SUICIDAL INTENTION - MENTAL HEALTH CAME AND TALKED TO THE PATIENT AND THE PATIENT REFUSED 4. ANEMIA, IRON DEFICIENCY TYPE, STABLE 5. HOMELESS AT THIS TIME DISCHARGE INSTRUCTIONS: Discharge patient home. Followup at [facility] in 5 to 7 days. MEDICATIONS AT DISCHARGE: None NEW PRESCRIPTIONS: Augmentin 500-125 mg p.o. q.12hr for 8 days DIET INSTRUCTIONS: Regular ACTIVITY: As patient tolerates. SMOKING: Every day smoker DISEASE SPECIFIC EDUCATION: Dehydration Urinary tract infection Antibiotic use and diarrhea HOSPITAL COURSE: The patient is a 27-year-old female who came to the emergency room with fever, abdominal pain, right flank pain. Temperature 103.6. Respiratory rate 20. Pulse 92. White count normal. Hemoglobin 9.8. Sodium 134, potassium 3.1. The potassium was replaced, urinary tract infection, positive for UTI. The patient was admitted to the hospital. Lactic Acid was 29,000. CT of the abdomen showed perinephric stranding. Antibiotic Levofloxacin was given, changed to Cefepine. Hemoglobin and hematocrit gradually dropped, 9.8, 9.1 and 9.9. Anemia profile was done which showed iron deficiency anemia. Potassium replaced. Blood culture and urine culture both showed E. coli, not ESBL positive, sensitive to most antibiotics. The patient's mother called and said the patient may be suicidal. Mental Health came and talked to her. The patient said she was not. The patient was gradually pain free and temperature free, up and about walking. She did not have any complications. At that time, the patient was discharged home on Augmentin. The patient is to follow at the [facility] within 5 to 7 days. TIME SPENT: MORE THAN 65 MINUTES MTDD
== END 2017-09-17 14:23 | disposition home or self-care (01) | DRG 690 ==
LOC: ED 01:59 → MEDSURG A 04:03
PROVIDERS: ADMIT Emergency Medicine; ATTEND Emergency Medicine
DX: N10 Acute pyelonephritis (principal); R45.851 Suicidal ideations; R78.81 Bacteremia; N20.0 Calculus of kidney; E87.6 Hypokalemia; D50.9 Iron deficiency anemia, unspecified; R93.3 Abnormal findings on diagnostic imaging of other parts of digestive tract; R10.11 Right upper quadrant pain; F17.210 Nicotine dependence, cigarettes, uncomplicated; Z59.0 Homelessness; Z87.440 Personal history of urinary (tract) infections; B96.20 Unspecified Escherichia coli [E. coli] as the cause of diseases classified elsewhere; Z16.11 Resistance to penicillins
CPT/HCPCS: 36415; 74176; 80048; 80053; 81001; 82150; 82607; 82728; 82746; 83540; 83550; 83605; 83690; 84145; 84466; 84703; 85025; 85045; 87040; 87070; 87086; 87186; 96361; 96365; 96375; 99284

== ENCOUNTER 2018-07-20 18:19 | Outpatient (CLI) | END 2018-07-20 18:20 | disposition home or self-care (01) | LOC: LAB 18:19 | PROVIDERS: ATTEND Nurse Practitioner Family | DX: Z32.01 Encounter for pregnancy test, result positive (principal) | CPT/HCPCS: 36415; 80053; 84702; 85025 ==